=== PATIENT | male | born 1985 | race African-American/Black ===

== ENCOUNTER 2016-10-21 16:03 | Emergency (ER) | payer SELFPAY ==
--- NOTE | 2016-10-21 16:13 | ER Document Report ---
ED Medical Screen (RME) - General Stated Complaint: LACERATION TO RIGHT LEG Notes: 31 yo male c/o laceration below right knee. unsure of what he cut leg on. bleeding controlled. unsure of tetnus status. TRAVEL OUTSIDE OF THE [place] IN LAST 30 DAYS: No - Related Data Allergies/Adverse Reactions: No Known Allergies Allergy (Verified 04/01/14 15:22) Past Medical History - Immunizations Hx Diphtheria, Pertussis, Tetanus Vaccination: No
[2016-10-21] MEDS ORDERED: DIPH/PERTUSS(ACELL)/TETANUS VAC/PF 0.5 ML SYR (>=10YO) IM ONE (16:14)
[2016-10-21] MEDS ORDERED: LIDOCAINE 1%/EPINEPHRINE INJ 20 ML VIAL INJ ONE (18:29)
--- NOTE | 2016-10-21 18:31 | ER Document Report ---
ED General - General Chief Complaint: Laceration Stated Complaint: LACERATION TO RIGHT LEG Notes: Patient is a 31-year-old without past medical history who presents with a laceration to his distal right lower extremity that he sustained after he fell off of his work truck. The leg clipped the side of the truck as he fell out causing a laceration. Since that time is described a constant, dull, stabbing pain. Nothing improves or worsens the pain. Denies a history of similar injury in the past. Denies any associated weakness or numbness. No additional injuries. He has not seen his primary care doctor regarding today's concerns. He is uncertain of last tetanus shot he has received TRAVEL OUTSIDE OF THE [place] IN LAST 30 DAYS: No - Related Data Allergies/Adverse Reactions: No Known Allergies Allergy (Verified 10/21/16 16:13) Past Medical History - General Information source: Patient - Social History Smoking Status: Never Smoker Chew tobacco use (# tins/day): No Frequency of alcohol use: None Drug Abuse: None Lives with: Spouse/Significant other Family History: Reviewed & Not Pertinent Patient has suicidal ideation: No Patient has homicidal ideation: No Renal/ Medical History: Denies: Hx Peritoneal Dialysis - Immunizations Hx Diphtheria, Pertussis, Tetanus Vaccination: No Review of Systems - Review of Systems Notes: Constitutional: Negative for fever. Eyes: Negative for visual changes. ENT: Negative for facial injury Cardiovascular: Negative for chest injury. Respiratory: Negative for shortness of breath. Gastrointestinal: Negative for abdominal injury. Genitourinary: Negative for genital injury Musculoskeletal: Negative for back injury. Skin: Positive for laceration/abrasions. Neurological: Negative for head injury. Physical Exam - Vital signs Vitals: Temp Pulse Resp BP Pulse Ox 98.0 F 80 24 H 113/83 100 10/21/16 16:08 10/21/16 16:08 10/21/16 16:08 10/21/16 16:08 10/21/16 16:08 Interpretation: Tachypneic Notes: PHYSICAL EXAMINATION: GENERAL: Well-appearing, well-nourished and in no acute distress. HEAD: Atraumatic, normocephalic. EYES: sclera anicteric, conjunctiva are normal. ENT: Moist mucous membranes. NECK: Normal range of motion LUNGS: Normal work of breathing HEART: 2+ radial pulses bilaterally EXTREMITIES: no pitting or edema. No cyanosis. NEUROLOGICAL: No focal neurological deficits. Moves all extremities spontaneously and on command. PSYCH: Normal mood, normal affect. SKIN: Warm, Dry, normal turgor, there is a flap type laceration over the proximal tibial surface on the right lower extremity Course - Re-evaluation Re-evalutation: 10/21/16 18:30 Patient presents with a 2cm, flap type laceration to the proximal tibial surface of the right lower extremity. No additional injuries. Laceration was repaired at the bedside after tetanus immunization was updated. A plain film of the extremity does not show any retained foreign body.At this time will discharge with return precautions and follow-up recommendations. Verbal discharge instructions given a the bedside and opportunity for questions given. Medication warnings reviewed. Patient is in agreement with this plan and has verbalized understanding of return precautions and the need for primary care follow-up in the next 24-72 hours. - Vital Signs Vital signs: Temp Pulse Resp BP Pulse Ox 98.7 F 86 24 H 131/77 H 99 10/21/16 19:59 10/21/16 19:59 10/21/16 16:08 10/21/16 19:59 10/21/16 19:59 - Diagnostic Test Radiology reviewed: Image reviewed, Reports reviewed Radiology results interpreted by me: 10/22/16 03:48 Right tib-fib x-ray: No acute fracture Discharge - Discharge Clinical Impression: Laceration of right lower extremity Qualifiers: Encounter type: initial encounter Qualified Code(s): S81.811A - Laceration without foreign body, right lower leg, initial encounter Condition: Good Disposition: HOME, SELF-CARE Additional Instructions: Please return to your primary doctor, the ED, or an urgent care in 7 days for suture removal. Return immediately if you develop spreading redness around the wound, pus from the wound, worsening pain, or a fever of >100.4. Keep the area clean and dry. Wash gently with soap and water twice daily and cover with antibiotic ointment. Prescriptions: Ibuprofen 800 mg PO Q8HP PRN #30 tablet PRN Reason: Forms: Return to Work
[2016-10-21] MEDS ORDERED: LIDOCAINE 1.5%/EPINEPHRINE INJ-PF 30 ML SDV INJ ONE (18:59)
[2016-10-21] MEDS ORDERED: LIDOCAINE 1% INJ-PF (10 MG/ML) 30 ML SDV ONE (19:14)
[2016-10-21] MEDS ORDERED: IBUPROFEN 800 MG TABLET PO ONE (19:28)
[2016-10-21 20:05] VITALS: BP 131/77
== END 2016-10-21 20:06 | disposition home or self-care (01) ==
LOC: ER 16:03
DX: S81.811A Laceration without foreign body, right lower leg, initial encounter (principal); W17.89XA Other fall from one level to another, initial encounter; Y99.0 Civilian activity done for income or pay; Z23 Encounter for immunization
CPT/HCPCS: 99283; 90471; 73590; 90715; J3490

== ENCOUNTER 2016-10-28 16:45 | Emergency (ER) | payer SELFPAY ==
--- NOTE | 2016-10-28 17:15 | ER Document Report ---
ED Medical Screen (RME) - General Stated Complaint: SUTURE REMOVAL Notes: 31 yo male here for sutrue removal. #5 sutures intact just below right knee. no s/s infection TRAVEL OUTSIDE OF THE [place] IN LAST 30 DAYS: No - Related Data Allergies/Adverse Reactions: No Known Allergies Allergy (Verified 10/21/16 16:13) Past Medical History Renal/ Medical History: Denies: Hx Peritoneal Dialysis - Immunizations Hx Diphtheria, Pertussis, Tetanus Vaccination: No Physical Exam - Vital signs Vitals: Temp Pulse Resp BP Pulse Ox 98.1 F 89 16 137/76 H 97 10/28/16 17:04 10/28/16 17:04 10/28/16 17:04 10/28/16 17:04 10/28/16 17:04 Course - Vital Signs Vital signs: Temp Pulse Resp BP Pulse Ox 98.1 F 89 16 137/76 H 97 10/28/16 17:04 10/28/16 17:04 10/28/16 17:04 10/28/16 17:04 10/28/16 17:04
--- NOTE | 2016-10-28 19:41 | ER Document Report ---
ED Suture/Wound Recheck - General Chief Complaint: Suture Removal Stated Complaint: SUTURE REMOVAL Time seen by provider: 19:15 Mode of Arrival: Ambulatory Information source: Patient Notes: 31-year-old male 1 week status post suture repair of laceration to anterior right lower leg. He reports no bleeding or discharge since repair and has only minimal discomfort to the superior portion of the injury. He reports no injuries elsewhere presents now for scheduled suture removal. On exam Skin warm and dry HEENT no suffered a traumatic Right lower extremity has intact sutures and well approximated laceration edges with faint surrounding erythema along the laceration line but no fluctuance crepitance induration bleeding or discharge. There is only minimal discomfort palpation along the injury site. He has good range of motion the knee and ankle. TRAVEL OUTSIDE OF THE [place] IN LAST 30 DAYS: No - Related Data Allergies/Adverse Reactions: No Known Allergies Allergy (Verified 10/28/16 17:14) Past Medical History - Social History Smoking Status: Current Every Day Smoker Chew tobacco use (# tins/day): No Frequency of alcohol use: None Drug Abuse: None Family History: Reviewed & Not Pertinent Patient has suicidal ideation: No Patient has homicidal ideation: No Renal/ Medical History: Denies: Hx Peritoneal Dialysis - Immunizations Hx Diphtheria, Pertussis, Tetanus Vaccination: No Review of Systems - Review of Systems Constitutional: denies: Chills, Fever Physical Exam - Vital signs Vitals: Temp Pulse Resp BP Pulse Ox 98.1 F 89 16 137/76 H 97 10/28/16 17:04 10/28/16 17:04 10/28/16 17:04 10/28/16 17:04 10/28/16 17:04 Course - Re-evaluation Re-evalutation: 10/28/16 19:38 Patient sutures removed follow-up with physician as needed - Vital Signs Vital signs: Temp Pulse Resp BP Pulse Ox 98.1 F 89 16 137/76 H 97 10/28/16 17:04 10/28/16 17:04 10/28/16 17:04 10/28/16 17:04 10/28/16 17:04 Discharge - Discharge Clinical Impression: Encounter for removal of sutures Condition: Stable Disposition: HOME, SELF-CARE Additional Instructions: Laceration Care Your laceration has been sutured to keep the skin edges aligned during healing. The time of suture removal depends on the nature and location of your cut. Please follow the care instructions the doctor has outlined for you and return for further care, according to the schedule you've been given. Keep the wound and dressing clean. Unless you were told otherwise, you may shower daily, blotting the wound dry with a clean, unused towel. At other times, If the dressing gets wet or blood soaked, remove it and blot the wound dry, then reapply a new dressing. Unless you were instructed otherwise, dressings should be changed at least daily. If any signs of infection occur (swelling, redness, increasing tenderness, red streaks, tender lumps in the armpit or groin above the laceration, or fever) , see the doctor immediately. You had 5 sutures placed to your laceration Referrals: [facility] [Provider Group] - Follow up as needed
[2016-10-28 20:00] VITALS: BP 122/88
== END 2016-10-28 19:50 | disposition home or self-care (01) ==
LOC: ER 16:45
DX: S81.811D Laceration without foreign body, right lower leg, subsequent encounter (principal); X58.XXXD Exposure to other specified factors, subsequent encounter; F17.200 Nicotine dependence, unspecified, uncomplicated

== ENCOUNTER 2017-08-12 16:56 | Emergency (ER) | payer OTHER ==
[2017-08-12] MEDS ORDERED: IBUPROFEN 800 MG TABLET PO ONE (17:43)
--- NOTE | 2017-08-12 18:52 | ER Document Report ---
ED General - General Chief Complaint: Skin Problem Stated Complaint: POSSIBLE FACIAL ABSCESS Time Seen by Provider: 08/12/17 17:17 Mode of Arrival: Ambulatory Information source: Patient Notes: Patient is a 32-year-old black male comes emergency room with a 2 day onset of "boil in the middle of his forehead. Patient states that he has not had a pimple he has not tried to pop anything he developed this little bump in the right in the middle of his forehead about 1 inch above the bridge of the nose and he said is very painful but his mother told her today that looked like it was swelling going down to his eyelids bilaterally. Patient came in today to get evaluated. Patient denies any other medical problems. TRAVEL OUTSIDE OF THE [place] IN LAST 30 DAYS: No - HPI Patient complains to provider of: Abscess forehead Onset: Other Onset/Duration: Sudden - 2 days, Worse Quality of pain: Achy, Burning, Throbbing Severity: Moderate Pain Level: 2 Associated symptoms: denies: None, Allergy/hay fever, Body/muscle aches, Chest pain, Chills, Nonproductive cough, Productive cough, Diarrhea, Drooling, Earache , Fever, Headache, Hoarseness, Hurts to breath, Leg swelling, Nausea, Vomiting, Rhinnorhea, Sinus pain/drainage, Shortness of breath, Slow to respond, Sore throat, Sweating, Weakness, Other Exacerbated by: Denies Relieved by: Denies Similar symptoms previously: No Recently seen / treated by doctor: No - Related Data Allergies/Adverse Reactions: No Known Allergies Allergy (Verified 08/12/17 16:57) Past Medical History - General Information source: Patient - Social History Smoking Status: Current Every Day Smoker Cigarette use (# per day): Yes - 1 pack a day Chew tobacco use (# tins/day): No Frequency of alcohol use: Occasional Drug Abuse: None Family History: Reviewed & Not Pertinent Patient has suicidal ideation: No Patient has homicidal ideation: No Renal/ Medical History: Denies: Hx Peritoneal Dialysis - Immunizations Hx Diphtheria, Pertussis, Tetanus Vaccination: No Review of Systems - Review of Systems Constitutional: No symptoms reported EENT: No symptoms reported Cardiovascular: No symptoms reported Respiratory: No symptoms reported Gastrointestinal: No symptoms reported Genitourinary: No symptoms reported Male Genitourinary: No symptoms reported Musculoskeletal: No symptoms reported Skin: See HPI, Other - Abscess middle forehead just above nose Hematologic/Lymphatic: No symptoms reported Neurological/Psychological: No symptoms reported -: Yes All other systems reviewed and negative Physical Exam - Vital signs Vitals: Temp Pulse Resp BP Pulse Ox 98.8 F 98 16 146/80 H 98 08/12/17 17:03 08/12/17 17:03 08/12/17 17:03 08/12/17 17:03 08/12/17 17:03 Interpretation: Hypertensive - General General appearance: Alert, Other - Uncomfortable appearing - HEENT Head: Normocephalic, Other - patient has a 2 x 2 palpable nodule just above the nose in the center of the forehead. Very tender to palpate mild erythema noted.Extending out from that is some mild swelling above both eyebrows. Moderate warmth to the general area. There is no sign of an entrance for infection. But again is very tender to palpate. Eyes: Normal - Respiratory Respiratory status: No respiratory distress Chest status: Nontender Breath sounds: Normal Chest palpation: Normal - Cardiovascular Rhythm: Regular Heart sounds: Normal auscultation Murmur: No - Neurological Neuro grossly intact: Yes Cognition: Normal Orientation: AAOx4, Disoriented to time [place] Coma Scale Eye Opening: Spontaneous Ying Coma Scale Verbal: Oriented Ying Coma Scale Motor: Obeys Commands [place] Coma Scale Total: 15 Speech: Normal Course - Vital Signs Vital signs: Temp Pulse Resp BP Pulse Ox 98.8 F 98 16 146/80 H 98 08/12/17 17:03 08/12/17 17:03 08/12/17 17:03 08/12/17 17:03 08/12/17 17:03 - Transfer of Care Notes: 08/12/17 18:54 I had originally talked to patient about attempting antibiotics for a few days first because it is so small and was more firm area. As I started right up his paperwork I decided to have take a look at it as well. Heuch offered the patient an option of the antibiotics first or a needle biopsy or needle puncture that may open it up and get some of it out. Patient elected to have this. We did a 18-gauge needle puncture and we did get out some pus. Patient tolerated it but it was extremely painful. It is being sent out for culture. I informed patient we will put him on 2 antibiotics and if he gets any bigger or he has any concerns return to ER. Procedures - Incision and Drainage Mid- Head Time completed: 18:55 Type: Simple, Single mL's of anesthetic: 0 Blade size: Other - 18-gauge needle I&D procedure: Betadine prep applied Incision Method: Incision made with needle Amount/type of drainage: 1-2 mL's plus Notes: 08/12/17 18:56 I actually cleaned the area with alcohol and Betadine. Using 18-gauge needle and palpated the lesion centered the needle in the middle and push forward. I went down until I felt a small give and retracted the 18-gauge needle had applied pressure to both sides of the lesion and a 1-2 mL's of pus came out of the location. It was exceptionally painful as per patient and also gave him a headache that he states radiated to the back of his head. But he did tolerate it and was happy to have it done. There were no complications. Discharge - Discharge Clinical Impression: Abscess of face Condition: Good Disposition: HOME, SELF-CARE Instructions: Abscess ([facility]) Additional Instructions: Home and use warm moist compresses 3 times a day as we discussed. Ibuprofen for the pain and discomfort. As we also discussed if you have increasing pain if you have increasing size or visual problems or have any concerns come back to ER. Prescriptions: Cephalexin Monohydrate [Keflex 500 mg Capsule] 500 mg PO QID #28 capsule Ibuprofen 800 mg PO TID #28 tablet Sulfamethoxazole/Trimethoprim [Bactrim Ds Tablet] 1 each PO BID #20 tablet Forms: Elevated Blood Pressure, Smoking Cessation Education Referrals: MEMO PUGH FNP-C [Primary Care Provider] - Follow up as needed
[2017-08-12 19:48] VITALS: BP 139/93
== END 2017-08-12 19:48 | disposition home or self-care (01) ==
LOC: ER 16:56
DX: L02.01 Cutaneous abscess of face (principal); F17.210 Nicotine dependence, cigarettes, uncomplicated
CPT/HCPCS: 87070; 87205; 99283